=== PATIENT | female | born 1960 | race African-American/Black ===

== ENCOUNTER 2017-03-08 21:59 | Emergency (ER) | payer BC ==
[~2017-03-08] VITALS: Ht 157.5 cm; Wt 86.4 kg
[~2017-03-08 21:59] MED LIST: ASPIRIN 81M81 MG/TA2 PO; GLUCOSAMIN 500 PO; NASONEX SPRAY17 GM NS; NATURAL POTASS595 MG PO; PRINZIDE 25 MG-1 TAB PO; PROAIR HFA0.09 MG/AC IH; VITAMIN D 400400 IU PO; ZYRTEC 10MG10 MG PO
[2017-03-08 22:06] VITALS: BP 132/82; TEMP 98.8
[2017-03-08] MEDS ORDERED: NORCO 325 MG-51 TAB PO (23:20)
[2017-03-08 23:36] VITALS: PULSE 72
[2017-03-18] MEDS ORDERED: MOBIC 7.5MG7.5 MG PO (12:49)
[2017-03-18] MEDS ORDERED: ESTRACE2 MG PO (12:51)
== END 2017-03-08 23:37 | disposition home or self-care (01) ==
LOC: COL.ER 21:59
DX: M54.31 Sciatica, right side (principal); I10 Essential (primary) hypertension
CPT/HCPCS: J1885; J2360

== ENCOUNTER → 2017-03-22 | Outpatient (CLI) | payer BC ==
[~2017-03-22] VITALS: Ht 157.5 cm; Wt 85.7 kg
[~2017-03-22] MED LIST changes: +ESTRACE2 MG PO; +MOBIC 7.5MG7.5 MG PO; +NORCO 325 MG-51 TAB PO
[2017-03-22 07:02] VITALS: BP 152/99; PULSE 76
[2017-03-22 08:50] VITALS: BP 165/96; PULSE 64
== END ==
LOC: COL.RAD 06:30
DX: M46.1 Sacroiliitis, not elsewhere classified (principal)
CPT/HCPCS: G0260; J3301

== ENCOUNTER → 2017-12-19 | Outpatient (CLI) | payer BC | LOC: MC.RAD 10:00 | DX: Z12.31 Encounter for screening mammogram for malignant neoplasm of breast (principal) ==

== ENCOUNTER 2019-10-21 16:28 | Emergency (ER) | payer BC ==
[~2019-10-21] VITALS: Ht 157.5 cm; Wt 86.4 kg
[2019-10-21 16:34] VITALS: BP 153/90; TEMP 97.3
[2019-10-21 17:42] VITALS: PULSE 81
== END 2019-10-21 17:43 | disposition home or self-care (01) ==
LOC: COL.ER 16:28
DX: S61.211A Laceration without foreign body of left index finger without damage to nail, initial encounter (principal); I10 Essential (primary) hypertension; W26.8XXA Contact with other sharp object(s), not elsewhere classified, initial encounter; Y92.009 Unspecified place in unspecified non-institutional (private) residence as the place of occurrence of the external cause

== ENCOUNTER → 2019-11-03 | Outpatient (CLI) | payer BC ==
[2019-11-03 15:38] VITALS: PULSE 89; TEMP 98.6
== END ==
LOC: COL.ER 15:20
DX: S61.211D Laceration without foreign body of left index finger without damage to nail, subsequent encounter (principal); X58.XXXD Exposure to other specified factors, subsequent encounter